=== PATIENT | female | born 1945 | race Caucasian/White ===

== ENCOUNTER 2021-06-09 14:46 | Inpatient (IN) | payer MEDICARE, BC ==
[~2021-06-09] VITALS: Ht 157.5 cm; Wt 52.2 kg
[2021-06-09] MEDS ORDERED: IV NORMAL SALINE 1000 ML BAG IV ONE (15:00)
[2021-06-09] MEDS ORDERED: FAMOTIDINE. 20 MG/2 ML VIAL IV ONE ×2 (15:00→15:17)
[2021-06-09] MEDS ORDERED: LEVO112T2 PO (15:21)
[2021-06-09 15:30] LABS: HEMATOCRIT 37.8 % (31.2-41.9); MEAN CORPUSCULAR HEMOGLOBIN 30.7 uug (24.7-32.8); MEAN CORPUSCULAR VOLUME 91.8 fL (75.5-95.3); PLATELET COUNT (AUTO) 163 K/uL (179-408)
[2021-06-09 15:32] LABS: CARBON DIOXIDE 29 mmol/L (21-32); CHLORIDE 102 mmol/L (98-107); CREATININE 0.8 mg/dL (0.6-1.3); GLUCOSE 108 mg/dL (74-106); POTASSIUM 3.9 mmol/L (3.5-5.1); UREA NITROGEN, BLOOD 18 mg/dL (7-18)
[2021-06-09 15:39] LABS: ALANINE AMINOTRANSFERASE 40 U/L (14-59); ALKALINE PHOSPHATASE 65 U/L (50-136); ASPARTATE AMINOTRANSFERASE 40 U/L (15-37); BILIRUBIN,DIRECT 0.1 mg/dL (0.0-0.2); BILIRUBIN,TOTAL 0.3 mg/dL (0.2-1.0)
[2021-06-09 15:41] LABS: ETHANOL < 3 MG/DL (0-0)
[2021-06-09] MEDS ORDERED: ACETAMINOPHEN 325 MG TABLET PO PRN (16:45)
[2021-06-09] MEDS ORDERED: ONDANSETRON 4 MG/2 ML VIAL IV PRN (16:45)
[2021-06-09] MEDS ORDERED: MAGNESIUM HYDROXIDE 30 ML LIQUID UDC PO PRN (16:45)
[2021-06-09] MEDS ORDERED: Z GUARD REMEDY PASTE 57 GM TUBE TOP PRN (16:45)
[2021-06-09] MEDS ORDERED: ENOXAPARIN SODIUM 40 MG/0.4 ML DISP.SYRIN SQ SCH (21:00)
[2021-06-09 21:10] VITALS: BP 128/76
[2021-06-10] VITALS: BP 137/76
[2021-06-10 04:12] VITALS: BP 144/78
[2021-06-10 06:39] LABS: HEMATOCRIT 35.1 % (31.2-41.9); MEAN CORPUSCULAR HEMOGLOBIN 30.9 uug (24.7-32.8); MEAN CORPUSCULAR VOLUME 91.5 fL (75.5-95.3); PLATELET COUNT (AUTO) 150 K/uL (179-408)
[2021-06-10 06:54] LABS: CREATININE 0.7 mg/dL (0.6-1.3); PHOSPHOROUS 3.3 mg/dL (2.5-4.9); POTASSIUM 3.7 mmol/L (3.5-5.1)
[2021-06-10] MEDS ORDERED: LEVOTHYROXINE SODIUM 112 MCG TABLET PO SCH (07:00)
[2021-06-10 08:08] VITALS: BP 129/76
== END 2021-06-10 10:55 | disposition home or self-care (01) | DRG 74 ==
LOC: ER 14:48 → TRANSITION 17:30 → TELE3 20:44 → MEDSURG3 06-10 10:35
PROVIDERS: ADMIT Nurse Practitioner Family; ATTEND Nurse Practitioner Family
DX: G90.8 Other disorders of autonomic nervous system (principal); K59.09 Other constipation; E03.9 Hypothyroidism, unspecified; Z79.890 Hormone replacement therapy; E78.5 Hyperlipidemia, unspecified; G89.29 Other chronic pain; R10.13 Epigastric pain; K44.9 Diaphragmatic hernia without obstruction or gangrene; I70.8 Atherosclerosis of other arteries; M43.12 Spondylolisthesis, cervical region; N28.1 Cyst of kidney, acquired; M48.02 Spinal stenosis, cervical region; R53.1 Weakness
CPT/HCPCS: 36415; 70030-TC; 70450; 71045; 72125; 83605; 83690; 83735; 84100; 84443; 85025; 85730; 87040; 93005; 93880; A4663; G0378; G0480; J1650; J3490; J7030